=== PATIENT | male | born 1965 | race Caucasian/White ===

== ENCOUNTER 2016-09-09 07:23 | Emergency (ER) | payer OTHER ==
[~2016-09-09] VITALS: Ht 177.8 cm; Wt 109.3 kg
[~2016-09-09 07:23] MED LIST: CLON1TAB PO; GABA300C PO; PANT40TA3 PO; TRAM100T2 PO; ZOLP10TA PO
[2016-09-09] MEDS ORDERED: SODIUM CHLORIDE 0.9% 1,000 ML IV ONE (07:48)
[2016-09-09] MEDS ORDERED: SODIUM CHLORIDE 0.9% 1,000ML IVBOLUS ONE (08:00)
[2016-09-09] MEDS ORDERED: ONDANSETRON 2MG/ML, 2ML IVPush ONE (08:00)
[2016-09-09] MEDS ORDERED: MORPHINE SULFATE 4 MG/ML, 1ML ONE ×2 (08:07→09:02)
[2016-09-09] MEDS ORDERED: ONDANSETRON 2MG/ML, 2ML ONE (08:08)
[2016-09-09] MEDS: MORPHINE SULFATE 4 MG/ML, 1ML IVPush PRN ×2 (08:10→09:03)
[2016-09-09] MEDS ORDERED: LIDOCAINE 1%, 20ML ONE (09:42)
[2016-09-09] MEDS ORDERED: LIDOCAINE 1%, 20ML SQ ONE (10:00)
[2016-09-09 10:38] VITALS: BP 150/88
== END 2016-09-09 10:40 | disposition home or self-care (01) ==
LOC: ED 08:37
DX: S12.601A Unspecified nondisplaced fracture of seventh cervical vertebra, initial encounter for closed fracture (principal); S01.01XA Laceration without foreign body of scalp, initial encounter; Z88.0 Allergy status to penicillin; X58.XXXA Exposure to other specified factors, initial encounter; Y93.89 Activity, other specified; Y92.009 Unspecified place in unspecified non-institutional (private) residence as the place of occurrence of the external cause; Y99.9 Unspecified external cause status
CPT/HCPCS: 12001; 70450; 72125; 93005; 96361; 96374; 96375; 96376; 99284; J2405; J7030

== ENCOUNTER 2016-09-11 07:21 | Emergency (ER) | payer OTHER ==
[~2016-09-11] VITALS: Ht 182.9 cm; Wt 109.5 kg
[2016-09-11 07:28] VITALS: BP 137/89
[2016-09-11] MEDS ORDERED: BACITRACIN ZINC OINT 500U/GM, 0.9 GM ONE (08:52)
== END 2016-09-11 08:52 | disposition home or self-care (01) ==
LOC: ED 08:46
DX: S01.01XD Laceration without foreign body of scalp, subsequent encounter (principal); G40.909 Epilepsy, unspecified, not intractable, without status epilepticus; I25.2 Old myocardial infarction; F43.10 Post-traumatic stress disorder, unspecified; X58.XXXA Exposure to other specified factors, initial encounter; Y93.89 Activity, other specified; Y92.89 Other specified places as the place of occurrence of the external cause; Y99.8 Other external cause status
CPT/HCPCS: 99281

== ENCOUNTER 2016-12-11 12:30 | Emergency (ER) | payer OTHER ==
[~2016-12-11] VITALS: Ht 182.9 cm; Wt 100.0 kg
[2016-12-11] MEDS ORDERED: DIPH,PERTUSS(ACELL),TET VAC/PF 0.5 ML IM-VACC ONE (13:00)
[2016-12-11 14:35] VITALS: BP 101/76
== END 2016-12-11 14:37 | disposition home or self-care (01) ==
LOC: ED 14:31
DX: S09.90XA Unspecified injury of head, initial encounter (principal); S13.4XXA Sprain of ligaments of cervical spine, initial encounter; I25.2 Old myocardial infarction; Z87.820 Personal history of traumatic brain injury; Z88.0 Allergy status to penicillin; Z88.6 Allergy status to analgesic agent; Z88.5 Allergy status to narcotic agent; W17.89XA Other fall from one level to another, initial encounter; Y93.89 Activity, other specified; Y92.098 Other place in other non-institutional residence as the place of occurrence of the external cause; Y99.8 Other external cause status
CPT/HCPCS: 70450; 72125; 72128; 99284